=== PATIENT | male | born 1960 | race Caucasian/White ===

== ENCOUNTER 2018-01-02 12:37 | Outpatient (REF) | payer BC, SELFPAY ==
[2018-01-02 13:17] LABS: ALT 61 U/L (12-78); AST 40 U/L (15-37); Albumin 3.5 g/dL (3.4-5.0); Alkaline Phosphatase 70 U/L (46-116); Anion Gap 9.1 mmol/L (3-11); BUN 24 mg/dL (7-18); Bilirubin, Total 0.3 mg/dL (0.2-1.0); CO2 25.9 mmol/L (21.0-32.0); CREATININE 1.27 mg/dL (0.70-1.30); Calcium 8.6 mg/dL (8.5-10.1); Chloride 104 mmol/L (98-107); Cholesterol 185 mg/dL (50-200); Estimated GFR 58.05 (mL/min/1.73m2); Glucose 108 mg/dL (70-100); HDL Cholesterol 38 mg/dL (40-60); LDL CHOLESTEROL 128 mg/dL (<100); Potassium 4.5 mmol/L (3.5-5.1); Sodium 139 mmol/L (136-145); Triglyceride 109 mg/dL (30-150)
== END 2018-01-02 12:57 ==
LOC: NCHCN 12:37
PROVIDERS: PCP Nurse Practitioner; Visit Provider Nurse Practitioner
DX: I10 Essential (primary) hypertension (principal); R73.01 Impaired fasting glucose; K76.0 Fatty (change of) liver, not elsewhere classified
CPT/HCPCS: 80053; 80061; 83721

== ENCOUNTER 2019-02-21 12:51 | Outpatient (REF) | payer BC, SELFPAY ==
[2019-02-21 18:41] LABS: ALT 83 U/L (16-63); AST 50 U/L (15-37); Albumin 3.6 g/dL (3.4-5.0); Alkaline Phosphatase 67 U/L (46-116); Anion Gap 10.5 mmol/L (3-11); BUN 17 mg/dL (7-18); Bilirubin, Total 0.3 mg/dL (0.2-1.0); CO2 26.5 mmol/L (21.0-32.0); Calcium 8.8 mg/dL (8.5-10.1); Calculated LDL 126 mg/dL; Chloride 104 mmol/L (98-107); Cholesterol 183 mg/dL (<200); Glucose 104 mg/dL (74-106); HDL Cholesterol 35 mg/dL (40-60); Potassium 4.3 mmol/L (3.5-5.1); Sodium 141 mmol/L (136-145); Total Protein 7.1 g/dL (6.4-8.2); Triglyceride 112 mg/dL (<150)
[2019-02-21 18:43] LABS: Hemoglobin A1C 6.1 % (4.5-6.2)
== END 2019-02-21 13:11 ==
LOC: NCHCN 12:51
PROVIDERS: PCP Nurse Practitioner; Visit Provider Nurse Practitioner
DX: I10 Essential (primary) hypertension (principal); I48.91 Unspecified atrial fibrillation; K76.0 Fatty (change of) liver, not elsewhere classified
CPT/HCPCS: 80053; 80061; 83036

== ENCOUNTER 2020-01-08 11:21 | Outpatient (REF) | payer BC, SELFPAY ==
[2020-01-08 19:54] LABS: ALT 116 U/L (16-63); AST 86 U/L (15-37); Albumin 3.5 g/dL (3.4-5.0); Alkaline Phosphatase 68 U/L (46-116); Anion Gap 6.5 mmol/L (3-11); BUN 19 mg/dL (7-18); Bilirubin, Total 0.3 mg/dL (0.2-1.0); CO2 24.5 mmol/L (21.0-32.0); CREATININE 1.09 mg/dL (0.70-1.30); Calcium 8.7 mg/dL (8.5-10.1); Calculated LDL 124 mg/dL (<100); Chloride 104 mmol/L (98-107); Cholesterol 183 mg/dL (<200); Glucose 132 mg/dL (74-106); HDL Cholesterol 38 mg/dL (40-60); Potassium 4.3 mmol/L (3.5-5.1); Sodium 135 mmol/L (136-145); Total Protein 7.1 g/dL (6.4-8.2); Triglyceride 107 mg/dL (<150)
[2020-01-08 20:35] LABS: Hemoglobin A1C 6.1 % (<5.7)
[2020-01-09 04:32] LABS: Vitamin D 25 Total 70.4 ng/ml (30-100)
== END 2020-01-08 11:41 ==
LOC: NCHCN 11:21
PROVIDERS: PCP Nurse Practitioner; Visit Provider Nurse Practitioner
DX: I10 Essential (primary) hypertension (principal); E66.9 Obesity, unspecified; R73.03 Prediabetes; K76.0 Fatty (change of) liver, not elsewhere classified; Z13.21 Encounter for screening for nutritional disorder
CPT/HCPCS: 80053; 80061; 82306; 83036

== ENCOUNTER 2020-10-22 14:00 | Outpatient (CLI) | payer BC, SELFPAY ==
--- NOTE | 2020-10-22 13:00 | DI.RAD_ITS ---
Exam(s) XR ELBOW LT LIMITED EXAM: XR ELBOW LT LIMITED CLINICAL HISTORY: LEFT ELBOW PAIN. TECHNIQUE: 2D digital imaging was performed. COMPARISON: No exams were available for comparison FINDINGS: BONES: No acute fracture is present. No bony destructive lesion is seen. There is an enthesophyte at the triceps insertion site. Small calcifications are seen adjacent to both the medial lateral epicon dyles which may represent prior trauma. JOINTS: The elbow is normally aligned. No joint effusion is seen. SOFT TISSUE: Normal. IMPRESSION: No acute abnormality. Chronic changes about the elbow. DATA REPOSITORY: RADIATION DOSE DELIVERED:
== END 2020-10-22 14:01 | disposition home or self-care (01) ==
LOC: DIORS 14:01
PROVIDERS: PCP Nurse Practitioner; Referring Provider Nurse Practitioner; Visit Provider Student in an Organized Health Care Education/Training Program
DX: M25.522 Pain in left elbow (principal)
CPT/HCPCS: 73070

== ENCOUNTER 2022-01-03 14:19 | Outpatient (REF) | payer BC, SELFPAY ==
[2022-01-03 15:02] LABS: Abs Immature Grans 0.02 10^3/uL (0.0-0.06); Absolute Basophil Count 0.07 10^3/uL (0.0-0.2); Absolute Eosinophil Count 0.13 10^3/uL (0.0-0.7); Absolute Lymphocyte Count 1.96 10^3/uL (1.2-3.4); Absolute Monocyte Count 0.77 10^3/uL (0.1-0.8); Eosinophils % 1.8; HCT 42.1 % (40.0-50.0); HGB 14.2 g/dL (13.5-17.5); Immature Grans % 0.3; Lymphocytes % 26.7; MCH 31.8 pg (27.0-33.0); MCHC 33.7 % (32.0-36.0); MCV 94 fL (80-95); MPV 11.7 fL (8.0-11.0); Monocytes % 10.5; Neutrophils % 59.7; Platelet Count 187 10^3/uL (130-400); RBC 4.46 10^6/uL (4.36-5.78); RDW 13.7 % (11.8-14.1); RDW-SD 47.4 fL; WBC 7.35 10^3/uL (4.4-10.8)
[2022-01-03 16:03] LABS: ALT 43 U/L (16-63); AST 33 U/L (15-37); Albumin 3.8 g/dL (3.4-5.0); Alkaline Phosphatase 82 U/L (46-116); Anion Gap 10.1 mmol/L (3-11); BUN 26 mg/dL (7-18); Bilirubin, Total 0.4 mg/dL (0.2-1.0); CO2 23.9 mmol/L (21.0-32.0); CREATININE 1.1 mg/dL (0.70-1.30); Calcium 9.2 mg/dL (8.5-10.1); Calculated LDL 106 mg/dL (<100); Chloride 104 mmol/L (98-107); Cholesterol 174 mg/dL (<200); Estimated GFR 75.43 (mL/min/1.73m2); Glucose 94 mg/dL (74-106); HDL Cholesterol 49 mg/dL (40-60); Potassium 4.8 mmol/L (3.5-5.1); Sodium 138 mmol/L (136-145); TSH (W/Ref FT4) 6.37 uIU/mL (0.36-3.74); Total Protein 7.3 g/dL (6.4-8.2); Triglyceride 95 mg/dL (<150)
[2022-01-03 16:39] LABS: FREE T4 1.22 ng/dL (0.76-1.46); Uric Acid 5.9 mg/dL (3.5-7.2)
[2022-01-03 18:22] LABS: Hemoglobin A1C 6.1 % (<5.7)
== END 2022-01-03 14:20 | disposition home or self-care (01) ==
LOC: NCHCN 14:19
PROVIDERS: PCP Nurse Practitioner; Visit Provider Nurse Practitioner Family
DX: I10 Essential (primary) hypertension (principal); I48.91 Unspecified atrial fibrillation; R73.03 Prediabetes; F12.10 Cannabis abuse, uncomplicated; M10.9 Gout, unspecified; F10.10 Alcohol abuse, uncomplicated; R63.4 Abnormal weight loss
CPT/HCPCS: 80053; 80061; 83036; 84439; 84443; 84550; 85025

== ENCOUNTER 2022-05-16 12:57 | Outpatient (CLI) | payer BC, SELFPAY ==
--- NOTE | 2022-05-16 12:45 | RT.EKG_ITS ---
APPROVED REPORT Exam: Resting ECG Reason for Exam: afib Patient Location: O HR:69 bpm ECG Measurements Heart Rate 69 AXIS [place] [id number] P [id number] QRSd 95 QRS 56 QT 393 T 4 QTc 421 Conclusion Atrial fibrillation...V-rate 59- 79, irreg A-activity Low voltage, extremity leads...all extremity leads <0.5mV Otherwise normal
== END 2022-05-16 12:58 | disposition home or self-care (01) ==
LOC: DI.CARD 12:58
PROVIDERS: PCP Nurse Practitioner; Visit Provider Internal Medicine Cardiovascular Disease
DX: I48.91 Unspecified atrial fibrillation (principal)
CPT/HCPCS: 93010

== ENCOUNTER 2023-02-21 17:39 | Outpatient (REF) | payer BC, SELFPAY ==
[2023-02-21 16:13] LABS: HCT 42.5 % (40.0-50.0); MCH 31.4 pg (27.0-33.0); MCHC 32.9 % (32.0-36.0); MCV 95 fL (80-95); MPV 11.6 fL (8.0-11.0); Platelet Count 203 10^3/uL (130-400); RBC 4.46 10^6/uL (4.36-5.78); RDW 13.8 % (11.8-14.1); RDW-SD 48.4 fL; WBC 6.23 10^3/uL (4.4-10.8)
[2023-02-21 16:30] LABS: ALT 30 U/L (16-63); AST 23 U/L (15-37); Albumin 3.8 g/dL (3.4-5.0); Alkaline Phosphatase 65 U/L (46-116); Anion Gap 10.6 mmol/L (3-11); BUN 23 mg/dL (7-18); Bilirubin, Total 0.4 mg/dL (0.2-1.0); CO2 25.4 mmol/L (21.0-32.0); CREATININE 1.4 mg/dL (0.70-1.30); Calcium 9.1 mg/dL (8.5-10.1); Chloride 104 mmol/L (98-107); Estimated GFR 56.13 (mL/min/1.73m2); Glucose 108 mg/dL (74-106); Potassium 4.3 mmol/L (3.5-5.1); Sodium 140 mmol/L (136-145); Total Protein 7.3 g/dL (6.4-8.2); Uric Acid 6.1 mg/dL (3.5-7.2)
[2023-02-21 18:59] LABS: Calculated LDL 120 mg/dL (<100); Cholesterol 192 mg/dL (<200); HDL Cholesterol 49 mg/dL (40-60); Triglyceride 116 mg/dL (<150)
== END 2023-02-21 17:40 | disposition home or self-care (01) ==
LOC: NCHCN 17:39
PROVIDERS: PCP Nurse Practitioner; Visit Provider Nurse Practitioner Family
DX: I10 Essential (primary) hypertension (principal); E78.5 Hyperlipidemia, unspecified; M10.9 Gout, unspecified
CPT/HCPCS: 80053; 80061; 85027; 84550

== ENCOUNTER 2023-04-18 15:56 | Outpatient (CLI) | payer BC, SELFPAY | END 2023-04-18 15:57 | disposition home or self-care (01) | LOC: DI.CARD 15:57 | PROVIDERS: PCP Nurse Practitioner; Visit Provider Internal Medicine Cardiovascular Disease | CPT/HCPCS: 93010 ==

== ENCOUNTER → 2023-06-06 02:24 | Outpatient (CLI) | payer BC, SELFPAY ==
--- NOTE | 2023-06-06 14:31 | DI.US_ITS ---
APPROVED REPORT EXAM: Comprehensive 2D, Doppler, and color-flow Echocardiogram Patient Location: Out-Patient Golf Cart Assembler: Claudia Alejandra RDCS (AE) Indications: Atrial Fibrillation Other Information Study Quality: Fair. Technically limited study due to body habitus. Conclusion Technically difficult study Normal left ventricular wall thickness chamber size and overall systolic function. EF is 50%. Wall motion is normal Normal right ventricular size and function Left atrium is moderately dilated. Borderline dilated right atrium Aortic valve is sclerotic without stenosis or regurgitation Normal mitral valve with mild regurgitation Wall motion Left Ventricle The left ventricle is normal size. The overall left ventricular systolic function appears normal. The re is normal left ventricular wall thickness. There is no ventricular septal defect visualized. LVEF is 51%. Right Ventricle The right ventricle is normal size. The right ventricular systolic function is normal. Atria Left atrium is moderately dilated. Right atrium is borderline dilated. The interatrial septum is inta ct with no evidence for an atrial septal defect. Aortic Valve Aortic valve is sclerotic Number of aortic valve leaflets could not be assessed. There is no aortic v alvular stenosis. No aortic regurgitation is present. Mitral Valve The mitral valve is normal in structure. No evidence of mitral valve stenosis. Mild mitral regurgitat ion. Tricuspid Valve The tricuspid valve is normal in structure. There is no tricuspid valve stenosis. Trace tricuspid reg urgitation. Unable to assess PA pressure. Pulmonic Valve The pulmonary valve is normal in structure. There is no pulmonic valvular stenosis. There is no pulmo tricia valvular regurgitation. Great Vessels Aortic root is mildly dilated. The ascending aorta is mildly dilated. Aortic arch is not well visual ized. IVC is normal in size and collapses >50% with inspiration. Pericardium There is no pericardial effusion. 2D Dimensions IVSD d PLAX 1.20 cm M: 0.6-1.2 Ao Root d 3.84 cm M: 3.1 - 3.7 LVPW d PLAX 1.25 cm M: 0.6 - 1.2 Ao Asc Diam d 3.88 cm M: 2.6 - 3.4 LVID d PLAX 5.45 cm M: 4.2 - 5.8 LVDs 4.04 cm M: 2.5 - 4.0 LV EF Teichholz 50.4 % FS 25.87 % LV EDV (Teich) 144.4 mL LV ESV (Teich) 71.7 mL Auto EF LV EDV A4C 164.1 mL LV EDV A2C 147.0 mL LV EDV BP 155.2 mL LV ESV A4C 76.3 mL LV ESV A2C 73.5 mL LV ESV BP 74.2 mL LVEF(%) A4C 53.5 % LVEF(%) A2C 50.0 % LVEF(%) BP 52.2 % LV SV A4C 87.8 ml LV SV A2C 73.5 ml LV SV BP 81.0 ml LV CO A4C 5.3 L/min LV CO A2C 4.2 L/min LV CO BP 4.7 L/min HR A4C 60.10 BPM HR A2C 57.42 BPM LV EDV Index (BP) LA Volume LA Length A4C 6.7 cm LA Length A2C 7.3 cm LA Area A4C s 32.61 cm2 LA Area A2C s 34.18 cm2 LA Vol A4C A-L 134.20 mL LA Vol A2C A-L 135.02 mL LA Vol Biplane A-L 140.7 mL LA Vol/BSA A4C A-L LA Vol/BSA A2C A-L LA Vol/BSA BP A-L 53.9 mL/m2 LA Vol A4C MOD 126.1 mL LA Vol A2C MOD 131.1 mL LA Vol BP MOD 133.1 mL RA Volume RA Area A4C 24.1 cm2 RA ESV A4C (A-L) 75.5mL RA Vol/BSA A4C A-L RA Length A4C 6.5 cm RA ESV A4C (MOD) 71.5mL LV Diastology MV E' lateral 0.134 (>0.1 m/s) MV E Vmax 1.10 (0.4-1.3 m/s) MV E/E' LAT 8.21 (<14) Aortic Valve AoV Vmax 1.34 m/s LVOT Vmax 1.19 m/s AoV Peak Grad 7.2 mmHg LVOT Peak Grad 5.7 mmHg AoV Area (Vmax) 3.86 cm2 LVOT VTI 0.235 m AoV VTI 0.279 m LVOT Mean Grad 2.8 mmHg AoV Mean Jt. 0.93 m/s LVOT SV 101.97 mL AoV Mean Grad 4.0 mmHg LVOT Diam s 2.35 cm AoV Area (VTI) 3.65 cm2 Velocity Ratio 0.89 Mitral Valve MV DT 177 (160-240 msec) MV Vmax TIPS 1.05 m/s MV Mean Grad 1.3 (<2mmHg) MV VTI 0.275 m Pulmonary Valve PV Vmax 0.72 (0.5-1.5 m/s) RVOT Vmax 0.56 m/s PV Peak Grad 2.1 mmHg RVOT Peak Gr. 1.3 mmHg PV Mean Jt 0.51 m/s RVOT VTI 0.130 m PV Mean Grad 1.2 mmHg RVOT Mean Gr. 0.6 mmHg Tricuspid Valve RA Pressure 3.00 mmHg TV S' 0.11 m/s
== END ==
PROVIDERS: PCP Nurse Practitioner Family; Visit Provider Internal Medicine Cardiovascular Disease
DX: I48.91 Unspecified atrial fibrillation (principal)
CPT/HCPCS: 93306

== ENCOUNTER 2023-06-12 06:55 | Day surgery (SDC) | payer BC, SELFPAY ==
--- NOTE | 2023-06-11 14:25 | W.PM.DSUDISC ---
Date of service: 06/12/23 Time of Service: 08:22 Discharge Plan Disposition Patient Disposition: Home Condition: Good Discharge Details Reason For Visit: Screening colonoscopy Attending Provider: Mathew Middleton Primary Care Provider: MARY ANNE HERRON Home Meds and New Rx's Prescriptions: Continued aspirin 81 mg tablet,delayed release (DR/EC) 81 mg PO DAILY spironolactone 25 mg tablet 25 mg PO DAILY cholecalciferol (vitamin D3) 25 mcg (1,000 unit) tablet,chewable 3,000 unit PO DAILY ibuprofen 800 mg tablet 800 mg PO BID PRN (Reason: pain) Qty: 30 0RF Rx Instructions: Take 1 every 12 hours with a meal as needed for pain metoprolol succinate 50 mg tablet extended release 24 hr 50 mg PO DAILY Qty: 90 3RF lisinopril 40 mg tablet 40 mg PO DAILY Qty: 90 6RF allopurinol 300 mg tablet 100 mg PO DAILY Discontinued bisacodyl 5 mg tablet,delayed release (DR/EC) 5 mg PO ONCE Qty: 4 0RF Rx Instructions: Per Colonoscopy bowel prep instructions polyethylene glycol 3350 17 gram/dose powder 238 g PO ONCE Qty: 238 0RF Rx Instructions: For Colonoscopy bowel prep, as directed by office Discharge Instructions Instructions: Diverticulosis (GEN), Colorectal Polyps (GEN), Diverticulosis Diet (GEN) Additional Instructions: Chevy, we were able to complete your colonoscopy today without any difficulty. Your prep was excellent and I could see everything just fine. I did find a total of 3 polyps. These were small to medium in size. I removed them all completely. Once I have the reports of the pathology analysis regarding the nature of the polyps, I will be in touch with recommendations for your next screening colonoscopy. Incidentally, he also have some diverticulosis. Diverticula are weak spots in the colon wall that typically accumulate as we get older. Staying well-hydrated and avoiding constipation with a diet that is rich in fiber is probably the best strategy to help minimize any complications from it. I have attached some general information here about diverticulosis as well as colorectal polyps. If you have any questions in the meantime, please do not hesitate to call or ask at any point. 1. If tolerated, consume a soft, low fiber diet for 1-2 days. 2[address] Do not drive, drink alcohol, operate machinery, make critical decisions, or do activities that require coordination or balance for 24 hours. 3. Because air was put into your colon during the procedure, expelling air from your rectum (passing gas or farting) is normal. 4. You may not have a bowel movement for 1-3 days because of the colonoscopy prep. This is normal. 5. Go directly to the emergency room if you notice any of the following: Develop chills (warm to touch), or if you have a thermometer and your temperature is above 101 Difficulty breathing or difficultly swallowing Persistent vomiting Severe abdominal pain, other than gas cramps Severe chest pain Black, tarry stools Any bleeding ? exceeding one tablespoon 6. Call your physician if the site where your intravenous was started becomes red, swollen, painful, and warm to touch. 7. Your physician has reviewed your pre-procedure medications. Please continue to take those medications as previously ordered. You will be given specific information/education regarding any changes to your medications before leaving. Activity:: Activity as Tolerated Diet:: As Tolerated Discharge Orders Discharge Orders: Discharge Order (Routine); Ordered 06/11/23 Ordered By: Mathew Middleton DS: Diagnosis Discharge Diagnosis (1) Encounter for screening colonoscopy: Status: Acute Asessment and Plan: Follow-up on polypectomy results
--- NOTE | 2023-06-11 14:26 | W.COLOREPORT ---
Date of service: 06/12/23 Time of Service: 08:26 Colonoscopy Report Date of procedure: 06/12/23 Pre-op diagnosis general: Screening colonoscopy Post-op diagnosis procedure note: other (Diverticulosis, colon polyps) Procedure: Colonoscopy Surgeon: Mathew Middleton Anesthesia Type: General:No Airway Estimated blood loss (mL): 10 Pathology: other (0.5 cm polyp at 90 cm, 0.25 cm polyp at 75 cm, 0.25 cm polyp at 70 cm) Complications: None Disposition: same day Indications: Josias is a 62-year-old male with history of tubular adenoma. He needs his next screening colonoscopy. Prep: Miralax/Dulcolax Procedure Start Time: 07:59 Procedure End Time: 08:15 Retraction Time: 11 Findings: Sigmoid diverticulosis, 0.5 cm polyp at 90 cm, 0.25 cm polyp at 75 cm, 0.25 cm polyp at 70 cm Procedure Description: After the induction of monitored anesthetic care, and with the patient in left lateral decubitus position, I began by performing an external anorectal exam.? Perineum and skin were normal, as was the anal verge.? There was no evidence of external hemorrhoids.? Next, I performed a digital rectal exam.? I did not appreciate any abnormal findings.? Next, I advanced a colonoscope into the rectal vault.? I performed retroflexion.? This appeared normal.? Using insufflation, I then advanced the colonoscope beyond the rectal folds and into the sigmoid colon before advancing towards the cecum.? There was sigmoid diverticulosis.? The scope was noted to be in the cecum by identification of the ileocecal valve and appendiceal orifice.? I then began withdrawing the colonoscope using repeated irrigation as necessary for full evaluation of the colonic mucosa. Around 90 cm from the anal verge I identified a 0.5 cm polyp. ?It appeared flat in character. ?I was able to remove this with a cold forcep polypectomy. ?I examined the site, and there was minimal bleeding. ?Once this was completed, I continued to withdraw the scope and examine the remainder of the colonic mucosa. Similarly, I found polyps at 75 and 70 cm from the anal verge. Each of these was 0.25 cm. Each of these was flat. I removed both of these polyps with cold forceps as well. The sites were fine. ?Once the scope was withdrawn to the level of the rectum, great care was taken to examine portions of the rectal folds.? Finally, the scope was withdrawn and the patient was brought to the same-day surgery recovery unit as the anesthetic wore off. ?The findings and instructions were shared with the patient prior to discharge. [place] Bowel Prep [place] Bowel Prep Right Colon: 3 Left Colon: 3 Transverse Colon: 3 Total Score: 9
--- NOTE | 2023-06-11 18:27 | ANES.PREOP_ITS ---
General Info Date of Service Date Performed: 06/12/23 Height: 6 ft 2 in Weight: 140.16 kg Body Mass Index (BMI): 39.6 Surgical Procedure: Operation Date: 06/12/23 08:20 Proposed Procedure Side Surgeon dorian Middleton MD Meds Allergies and Home Medications Allergies Allergy/AdvReac Type Severity Reaction Status Date / Time No Known Allergies Allergy Verified 06/12/23 07:06 Home Medication Medication Instructions Recorded aspirin 81 mg tablet,delayed 81 mg PO DAILY 03/30/18 release spironolactone 25 mg tablet 25 mg PO DAILY 03/30/18 cholecalciferol (vitamin D3) 25 3,000 unit PO DAILY 03/29/19 mcg (1,000 unit) chewable tablet lisinopril 40 mg tablet 40 mg PO DAILY #90 tabs 06/25/20 metoprolol succinate 50 mg 50 mg PO DAILY #90 tabs 06/25/20 tablet,extended release 24 hr ibuprofen 800 mg tablet 800 mg PO BID PRN pain #30 tabs 10/22/20 allopurinol 300 mg tablet 100 mg PO DAILY 05/31/23 Current Visit Medications: Current Medications Generic Name Dose Route Start Last Admin Trade Name Freq PRN Reason Stop Dose Admin Hyoscyamine Sulfate 0.125 mg 06/11/23 14:28 Hyoscyamine 0.125 Mg Sl/Oral/Chew SL 07/11/23 14:27 DIRECTED PRN Ringer's Solution 1,000 mls @ 80 mls/hr 06/12/23 06:00 IV 06/12/23 23:59 INFUSION [facility] IV Miscellaneous Supplies 1 each 06/12/23 06:00 Iv Access IV 06/12/23 23:59 DIRECTED KWAME Ondansetron HCl 4 mg 06/11/23 14:28 Ondansetron 4 Mg/2 Ml Vial IVP 07/11/23 14:27 Q4H PRN PRN Nausea / Vomiting Sodium Chloride 0 ml 06/12/23 06:00 Normal Saline Flush 10 Ml Syr IV 06/12/23 23:59 PRN PRN Sodium Chloride 0 ml 06/12/23 06:00 Normal Saline 10 Ml Vial IJ 06/12/23 23:59 DIRECTED PRN Sterile Water 0 ml 06/12/23 06:00 Water,Injection,Sterile 10 Ml Vial IJ 06/12/23 23:59 DIRECTED PRN PFSH Active Problems Active Problems: Problem Status Onset Code Encounter for screening colonoscopy Z12.11 Rupture of left distal biceps tendon 10/22/20 S46.212A Gout M10.9 Morbid obesity E66.01 Atrial fibrillation I48.91 Hypertension I10 Tubular adenoma of colon 02/15/16 D12.6 Medical History Medical History Excessive drinking of alcohol Surgical History Surgical History Colonoscopy - IV Sedation (02/08/16) Tobacco Smoking/Tobacco Use Status: Former Tobacco Use Alcohol Alcohol Intake: current Alcohol intake frequency: a few times a week Alcohol type: beer Details: 2 days/wk drinks 12-18 beers on those days Substance Use Substance use: Daily Substance use type: marijuana Vital Signs and Lab Results Vital Signs Most Recent Vital Signs in EMR: Temp Pulse Resp BP Pulse Ox 36.3 C L 69 16 123/82 95 06/12/23 07:10 06/12/23 07:10 06/12/23 07:10 06/12/23 07:10 06/12/23 07:10 Lab Results Blood Type / Crossmatch: No Data to Display Complete Blood Count: No Data to Display Complete Metabolic Panel: No Data to Display Liver Function Panel: No Data to Display Coagulation Panel: No Data to Display Cardiac Panel: No Data to Display Arterial Blood Gas: No Data to Display Venous Blood Gas: No Data to Display Pancreas Panel: No Data to Display Thyroid Panel: No Data to Display Infectious Disease: No Data to Display Blood Cultures: No Data to Display Toxicology Panel: No Data to Display Imaging and Studies Imaging and Studies Study information below may be from another EMR and interpreted by another provider. Please see original notes in EMR for more complete details. EKG Summary: 06/02: afib. Echocardiogram Summary: 06/03: LVEF 50%. mild MR. Anesthesia Assessment and Plan Anesthesia History Personal History: No History of Anesthesia Complications Family History: No Family History of Anesthesia Complications Exercise Tolerance Exercise Tolerance: Metabolic Equivalents>4 Cardiac & Pulmonary Exam Cardiac Exam: Normal S1/S2 Heart Sounds Pulmonary Exam: Clear Bilateral Breath Sounds Implantable Cardiac Device Does patient have a Pacemaker or an ICD?: No Airway Exam Known Difficult Airway: No Mallampati Class: 3 Mouth Opening: Normal (> 3cm) Thyromental Distance: Greater than 3 cm Neck Range of Motion: Full ROM Neck Circumference: Thick Teeth Condition: Normal Dentition ASA Classification ASA Score: ASA 3 Emergency Case?: No NPO Status NPO Status: NPO Clears >2 hours, Solids >8 hours Anesthesia Plan Resuscitation Status: Full Code Anesthesia Technique: General Anesthesia Airway Planned: Natural Airway Monitors Used: Standard Monitors Preoperative Comments:: 62 yo male for colo. Sig PMHx: afib, HTN (lisinopril, metop, spironolactone), gout. former smoker, EtOH, cannabis.
[2023-06-12 07:10] VITALS: BP 123/82; PULSE 69; RESP 16; TEMP 36.3; O2SAT 95
[2023-06-12] MEDS: Lactated Ringers 1,000 ML 80 ML IV (07:28)
[2023-06-12 07:35] VITALS: BMI 39.6
--- NOTE | 2023-06-12 08:07 | BOWEL_PTH ---
PATIENT: Josias Chris LOC: [facility] U#:[id number] AGE/SX: 62/M ROOM: RE06/12/[address]: Mathew Middleton MD : [id number] BED: DIS: 06/12/2023 SPEC #: [id number] RECD: 06/12/23 12:44 STATUS: CHEN REQ #: [id number] JAVIER: 06/12/23 08:[address]: Mathew Middleton DEPT: Surgical Specimen RECD BY: Audrey Schuler ENTERED: 06/12/23 12:45 SP TYPE: Bowel OTHR DR: MARY ANNE HERRON, TORCH CUTTER Tissues: 1 - BIOPSY BOWEL 2 - BIOPSY BOWEL 3 - BIOPSY BOWEL Procedures: GROSS AND MICRO LEVEL 4 Comments: [id number]
[2023-06-12 08:20] VITALS: BP 127/88; PULSE 68; RESP 20; TEMP 36.3; O2SAT 95
--- NOTE | 2023-06-12 08:30 | W.ANESPOSTOP ---
Postoperative Evaluation Date, Time and Location Date Performed: 06/12/23 Time Performed: 08:30 Patient Location: Day Surgery Unit Vital Signs Most Recent Imported Vital Signs: Most Recent Vital Signs Temp Pulse Resp BP Pulse Ox 36.3 C L 68 20 127/88 95 06/12/23 08:20 06/12/23 08:20 06/12/23 08:20 06/12/23 08:20 06/12/23 08:20 Pain Score Most Recent Pain Score: Most Recent Pain Score Pain Level 0 06/12/23 07:10 Assessment Mental Status: Awake (Alert & Oriented to Patient Baseline) Airway and Respiratory Function: Patent airway with normal (patient baseline) respiratory exam Cardiovascular Function: Hemodynamically Stable Hydration Status: Adequately Hydrated Nausea & Vomiting: No Nausea or Vomiting Pain: Pt. Denies Any Pain Peripheral Nerve Block: Patient did not receive a nerve block
[2023-06-12 08:55] VITALS: BP 115/85; PULSE 55; RESP 20; TEMP 36; O2SAT 100
== END 2023-06-12 09:07 | disposition home or self-care (01) ==
LOC: SUR 06:55
PROVIDERS: PCP Nurse Practitioner Family; Visit Provider Surgery
PROC: 0DJD8ZZ Inspection of Lower Intestinal Tract, Via Natural or Artificial Opening Endoscopic (ICD-10-PCS; CPT 45378; principal; 2023-06-12 08:15)
DX: Z12.11 Encounter for screening for malignant neoplasm of colon (principal); D12.3 Benign neoplasm of transverse colon; K57.30 Diverticulosis of large intestine without perforation or abscess without bleeding; I10 Essential (primary) hypertension; M10.9 Gout, unspecified; Z87.891 Personal history of nicotine dependence; F10.10 Alcohol abuse, uncomplicated; F12.90 Cannabis use, unspecified, uncomplicated; D12.4 Benign neoplasm of descending colon
CPT/HCPCS: 45380; 88305; J2704

== ENCOUNTER → 2024-06-07 11:17 | Outpatient (BNVA) | payer MEDICARE, SELFPAY | PROVIDERS: PCP Nurse Practitioner Family; Referring Provider Nurse Practitioner Family; Visit Provider Internal Medicine Cardiovascular Disease | DX: I48.21 Permanent atrial fibrillation (principal) | CPT/HCPCS: 99214 ==

== ENCOUNTER 2024-09-26 13:08 | Outpatient (REF) | payer MEDICARE, SELFPAY ==
[2024-09-26 16:17] LABS: ALT 40 U/L (16-63); AST 26 U/L (15-37); Albumin 3.8 g/dL (3.4-5.0); Alkaline Phosphatase 67 U/L (46-116); Anion Gap 11.7 mmol/L (3-11); BUN 20 mg/dL (7-18); Bilirubin, Total 0.4 mg/dL (0.2-1.0); CO2 24.3 mmol/L (21.0-32.0); Calcium 9.3 mg/dL (8.5-10.1); Chloride 106 mmol/L (98-107); Estimated GFR 83.52 (mL/min/1.73m2); Glucose 97 mg/dL (74-106); Potassium 4.6 mmol/L (3.5-5.1); Sodium 142 mmol/L (136-145); Total Protein 6.9 g/dL (6.4-8.2); Uric Acid 7.5 mg/dL (3.5-7.2)
[2024-09-26 16:21] LABS: Hemoglobin A1C 6.0 % (<5.7)
[2024-09-26 16:51] LABS: Calculated LDL 109 mg/dL (<100); Cholesterol 169 mg/dL (<200); HDL Cholesterol 42 mg/dL (>or=40); Triglyceride 93 mg/dL (<150)
[2024-09-27 10:02] LABS: Hepatitis C Ab w Rflx HCV PCR Negative (Negative)
== END 2024-09-26 13:09 | disposition home or self-care (01) ==
LOC: NCHCN 13:08
PROVIDERS: PCP Nurse Practitioner Family; Visit Provider Nurse Practitioner Family
DX: E66.9 Obesity, unspecified (principal); Z00.00 Encounter for general adult medical examination without abnormal findings
CPT/HCPCS: 80053; 80061; 86803; 83036; 84550

== ENCOUNTER 2024-10-01 01:54 | Outpatient (CLI) | payer MEDICARE, SELFPAY ==
--- NOTE | 2024-10-01 09:10 | DI.US_ITS ---
Exam(s) US AAA SCREENING EXAM: US AAA SCREENING CLINICAL HISTORY: SCREENING FOR AAA, VASCULAR DISORDER, H/O SMOKER, I99.9 COMPARISON: No exams were available for comparison FINDINGS: Abdominal Aorta: Proximal: 2.6 cm Mid: 2.8 cm Distal: 2.4 cm Iliacs: Right: 1.8 cm Left: 1.7 cm IMPRESSION: No evidence of abdominal aortic aneurysm. DATA REPOSITORY:
--- NOTE | 2024-10-01 09:14 | DI.RAD_ITS ---
Exam(s) XR KNEE RT 3V AP,LAT,KEVIN EXAM: XR KNEE RT 3V AP,LAT,KEVIN CLINICAL HISTORY: RT KNEE PAIN, M25.561. TECHNIQUE: 2D digital imaging was performed of the right knee. Three views obtained. AP, lateral and PA tunnel views were obtained. COMPARISON: There are no priors for comparison. FINDINGS: BONES: No acute fracture is present. No bony destructive lesion is seen. There is an enthesophyte at the superior patella. JOINTS: There is moderate narrowing of the medial femoral tibial joint. There osteophytes seen in the medial femoral tibial joint. There is a small joint effusion. SOFT TISSUE: There are atherosclerotic calcifications present. IMPRESSION: Moderate degenerative changes are seen in the right knee. DATA REPOSITORY: RADIATION DOSE DELIVERED:
--- NOTE | 2024-10-01 09:14 | DI.RAD_ITS ---
Exam(s) XR KNEE LT 3V AP,LAT,KEVIN EXAM: XR KNEE LT 3V AP,LAT,KEVIN CLINICAL HISTORY: LT KNEE PAIN, M25.562. TECHNIQUE: 2D digital imaging was performed of the left knee. Three images were obtained. AP, lateral and PA tunnel views were obtained. COMPARISON: CR LEFT KNEE COMPLETE from 12/13/2007 FINDINGS: BONES: No acute fracture is present. No bony destructive lesion is seen. JOINTS: There is joint space narrowing of the patellofemoral joint. There is marked narrowing in the medial femoral tibial joint. There osteophytes seen in all 3 joint compartments. There is a small joint effusion. There are few density seen posteriorly in the knee which may be loose bodies. SOFT TISSUE: Normal. IMPRESSION: Marked degenerative changes of the left knee. DATA REPOSITORY: RADIATION DOSE DELIVERED:
== END 2024-10-01 02:14 ==
PROVIDERS: PCP Nurse Practitioner Family; Visit Provider Nurse Practitioner Family
DX: M25.561 Pain in right knee (principal); M25.562 Pain in left knee
CPT/HCPCS: 73562; 76706